=== PATIENT | female | born 1980 ===

== ENCOUNTER 2019-06-23 11:03 | Inpatient (IN) | payer OTHER ==
[~2019-06-23] VITALS: Ht 167.6 cm; Wt 84.4 kg
== END 2019-07-03 12:30 | disposition home or self-care (01) | DRG 743 ==
LOC: O/R 06-28 07:45 → SURH 06-30 07:00 → EDSEX 06-30 07:45 → OB/GYN 06-30 08:22 → O/R 06-30 08:22 → OB/GYN 06-30 18:01
PROVIDERS: ADMIT Obstetrics & Gynecology
PROC: 0UT70ZZ Resection of Bilateral Fallopian Tubes, Open Approach (ICD-10-PCS; 2019-06-30)
PROC: 0UT90ZZ Resection of Uterus, Open Approach (ICD-10-PCS; principal; 2019-06-30 07:00)
DX: N87.1 Moderate cervical dysplasia (principal); D25.1 Intramural leiomyoma of uterus